=== PATIENT | female | born 1960 | race Caucasian/White ===

== ENCOUNTER → 2017-02-18 | Outpatient (CLI) | payer OTHER ==
[~2017-02-18] MED LIST: ACIPHEX20 MG PO; BENADRYL25 M1 PO; CELEBREX PO; CLARINEX5 MG PO; DETROL LA PO; EC-NAPROSYN500 MG PO; EPIPEN0.3 MG/0.1 IM; FLEXERIL10 MG PO; FLONASE16 GM; HYDROCODON-ACE1 EAC7; HYDROCODON-ACE1 EAC9 PO; HYZAAR1 TAB 100- PO; LEVOCETIRIZINE D5 MG PO; LOPRESSOR PO; LORTAB 10-5001 EACH PO; LORTAB 5/500 TA1 TA1 PO; METAXALONE800 MG PO; MONTELUKAST SOD10 MG PO; NASONEX17 GM; OMEPRAZOLE20 M1 PO; PEPCID AC20 M2 PO; PREDNISONE PO; THERALITH XR T1 EACH PO; TOPROL XL PO; VICODIN 5/1 TAB 5/50 PO
--- NOTE | ~2017-02-18 | US85 ---
[facility]. [facility] A Service of [facility] & [facility] RADIOLOGY TEXT RESULTS PATIENT: MESHA SANTA LOCATION: SNIV : 56 UNIT #: [id number] AGE: [address]: Teresita Pedroza MD SEX: F ORDER DR: [id number] [address] [address] [id number] O MR#: [id number] Acc #: [id number] NAME: MESHA SANTA : 1960 SEX: F STUDY DATE/TIME: 02/18/2017 9:30 UNIT: SNIV ROOM: STUDY DESCRIPTION: [facility] Attending Physician: Teresita Pedroza M.D. Referring Physician: Teresita Pedroza M.D. Ordering Physician: Teresita Pedroza M.D. Primary Care Physician: Teresita Pedroza M.D. MEDICAL IMAGING REPORT This report is preliminary unless electronic signature is present. EXAM Left lower extremity venous duplex HISTORY Left lower extremity edema, tenderness and pain. FINDINGS Duplex imaging of the left lower extremity reveals patent femoral, popliteal, tibial and peroneal veins with normal venous filling in all the visualized veins. No evidence of DVT is seen. IMPRESSION No evidence of DVT is seen in the left lower extremity. Dictated by... Eugenio Ambrsoio M.D. THIS IS AN ELECTRONICALLY VERIFIED REPORT Eugenio Ambrosio M.D. at 02/19/2017 7:15 AM /arnulfo TD: 02/18/2017 21:04 JOB #: [id number] MEDICAL IMAGING REPORT Page 1 of 1
== END | disposition home or self-care (01) ==
LOC: SNIV 09:11
DX: I82.402 Acute embolism and thrombosis of unspecified deep veins of left lower extremity (principal); R60.0 Localized edema; M79.662 Pain in left lower leg
CPT/HCPCS: 93971

== ENCOUNTER → 2017-03-08 | Outpatient (CLI) | payer OTHER ==
--- NOTE | ~2017-03-08 | US83 ---
[facility] A Service of [facility] & [facility] RADIOLOGY TEXT RESULTS PATIENT: MESHA SANTA LOCATION: CNIV : 56 UNIT #: [id number] AGE: [address]: Teresita Pedroza MD SEX: F ORDER DR: [id number] [facility] [address] [place], [place] [address] [id number] O MR#: [id number] Acc #: [id number] NAME: MESHA SANTA : 1960 SEX: F STUDY DATE/TIME: 03/08/2017 9:47 UNIT: CNIV ROOM: STUDY DESCRIPTION: [facility] [employer] [facility] Attending Physician: Teresita Pedroza M.D. Referring Physician: Teresita Pedroza M.D. Ordering Physician: Teresita Pedroza M.D. Primary Care Physician: Teresita Pedroza M.D. MEDICAL IMAGING REPORT This report is preliminary unless electronic signature is present DATE OF EXAMINATION 03/08/2017 EXAM Left lower extremity arterial duplex HISTORY Left leg pain, edema. FINDINGS The left common femoral artery is widely patent without disease with a velocity of 96 cm/sec. The profunda femoral artery is widely patent with normal waveform to velocity of 56 cm/sec. Superficial femoral artery throughout its course is widely patent without atherosclerosis and normal triphasic waveform and a mid thigh velocity of 68 cm/sec. Popliteal artery is widely patent without atherosclerosis. The velocity of 60 cm/sec. The tibial vessels appear to be widely patent throughout with the left anterior tibial artery velocity of 72 cm/sec, peroneal artery 20 cm/sec, and posterior tibial artery 80 cm/sec. IMPRESSION Widely patent and normal-appearing left lower extremity vasculature without stenoses or occlusions. Dictated by... Osmany Arredondo M.D. THIS IS AN ELECTRONICALLY VERIFIED REPORT Osmany Arredondo M.D. at 03/11/2017 11:04 AM JEY/[facility] A Service of [facility] & [facility] RADIOLOGY TEXT RESULTS PATIENT: MESHA SANTA LOCATION: CNIV : 56 UNIT #: [id number] AGE: [address]: Teresita Pedroza MD SEX: F ORDER DR: TD: 03/08/2017 16:05 JOB #: [id number] MEDICAL IMAGING REPORT Page 1 of 1 COPY
== END | disposition home or self-care (01) ==
LOC: CNIV 08:55
DX: I73.9 Peripheral vascular disease, unspecified (principal); R60.0 Localized edema
CPT/HCPCS: 93926